=== PATIENT | female | born 1965 | race American Indian/Alaskan Native ===

== ENCOUNTER 2016-12-16 22:29 | Emergency (ER) | payer BC ==
[2016-12-16] MEDS ORDERED: CATAPRES ONE ×2 (23:36)
[2016-12-16] MEDS ORDERED: CATAPRES PO ONE (23:41)
[2016-12-17 00:08] LABS: Basophils % (Auto) 1.1 % (0.0-1.8); Eosinophils % (Auto) 3.1 % (0.0-4.3); Hematocrit 34.5 % (30.3-42.9); Mean Corpuscular HGB Conc 32 % (30-34); Mean Corpuscular Volume 75 fl (79-97); Platelet Count 299 K/mm3 (140-440); Red Blood Count 4.62 M/mm3 (3.65-5.03); Red Cell Distribution Width 19.2 % (13.2-15.2); White Blood Count 10.5 K/mm3 (4.5-11.0)
[2016-12-17 00:09] LABS: Mean Corpuscular Hemoglobin 24 pg (28-32)
[2016-12-17 00:26] LABS: Chloride 102.1 mmol/L (98-107); Potassium 3.4 mmol/L (3.6-5.0); Sodium 139 mmol/L (137-145)
[2016-12-17 01:21] LABS: Anion Gap 17 mmol/L; BUN/Creatinine Ratio 18.33; Blood Urea Nitrogen 11 mg/dL (7-17); Carbon Dioxide 23 mmol/L (22-30); Glucose 104 mg/dL (65-100)
[2016-12-17 01:22] LABS: Alanine Aminotransferase 9 units/L (7-56); Alkaline Phosphatase 48 units/L (35-129); Lipase 103 units/L (13-60); Total Protein 7.9 g/dL (6.3-8.2)
[2016-12-17 01:26] LABS: Bacteria,Urine 1+ /HPF (Negative); Bilirubin,Urine NEG (Negative); Blood,Urine MOD (Negative); Ketones,Urine NEG (Negative); Leukocyte Esterase,Urine NEG (Negative); Mucus,Urine FEW /HPF; Nitrite,Urine NEG (Negative); Protein,Urine <15 mg/dL mg/dL (Negative); Urobilinogen,Urine < 2.0 mg/dL (<2.0)
--- NOTE | 2016-12-17 01:29 | Emergency Department Report ---
HPI - General Chief Complaint: Abdominal Pain Time Seen by Provider: 12/17/16 00:07 - HPI HPI: This is a 51 year-old female presents to the emergency department from home, driving himself in to be seen, with complaint of generalized abdominal pain that is worse in the upper abdomen. She says it feels like a gas pain but she does that it is not gas and she cannot get it to go away. This been going on intermittently over the past 2 weeks. She has some nausea but there has been no vomiting. She denies any fever, back pain, dysuria, vaginal bleeding or discharge. She has a history of previous pancreatitis, hypertension and GERD. She has a primary care physician, Dr. Giovanny Mir, but she has been noncompliant with her blood pressure medication. She tried some [place] for her symptoms without any relief. No recent travel or sick contacts at home. She denies any history of heavy alcohol use or gallbladder stones. ED Past Medical Hx - Past Medical History Previous Medical History?: Yes Hx Hypertension: Yes Hx Congestive Heart Failure: No Hx Diabetes: No Hx GERD: Yes Hx Renal Disease: Yes Hx Seizures: Yes Hx Asthma: No Hx COPD: No Additional medical history: PANCREATITIS - Surgical History Additional Surgical History: X 4. TUBAL LIGATION - Social History Smoking Status: Current Every Day Smoker - Medications Home Medications: Home Medications Medication Instructions Recorded Confirmed Last Taken Type Olmesartan/Hydrochlorothiazide 1 tab PO QDAY 05/05/16 05/05/16 05/04/16 09:00 History [Benicar HCT 40-25 mg] Famotidine [Pepcid] 20 mg PO BID #60 tablet 05/07/16 Unknown Rx HYDROcodone/APAP 5-325 [[place] 1 each PO Q6HR PRN #10 tablet 12/17/16 Unknown Rx 5-325 mg TAB] ED Review of Systems ROS: Stated complaint: ABD P Other details as noted in HPI Comment: All other systems reviewed and negative Constitutional: denies: chills, fever Eyes: denies: eye pain, eye discharge, vision change ENT: denies: ear pain, throat pain Respiratory: denies: cough, shortness of breath, wheezing Cardiovascular: denies: chest pain, palpitations Gastrointestinal: abdominal pain, nausea. denies: vomiting Genitourinary: denies: urgency, dysuria, discharge Musculoskeletal: denies: back pain, joint swelling, arthralgia Skin: denies: rash, lesions Neurological: denies: headache, weakness, paresthesias Physical Exam - Physical Exam Vital Signs: Vital Signs 12/16/16 12/17/16 23:19 00:05 Temperature 98.2 F Pulse Rate 90 76 Respiratory 20 Rate Blood Pressure 189/121 189/121 O2 Sat by Pulse 100 Oximetry Physical Exam: GENERAL: The patient is well-developed well-nourished. HEENT: Normocephalic. Atraumatic. Extraocular motions are intact. Patient has moist mucous membranes. Pupils equal reactive to light bilaterally. No nystagmus. NECK: Supple. Trachea is midline. CHEST/LUNGS: Clear to auscultation. There is no respiratory distress noted. HEART/CARDIOVASCULAR: Regular. There is no tachycardia. There is no gallop rub or murmur. ABDOMEN: Abdomen is soft. Generalized tenderness to palpation of the abdomen. No guarding or rebound tenderness. Patient has normal bowel sounds. There is no abdominal distention. SKIN: Skin is warm and dry. NEURO: The patient is awake, alert, and oriented. The patient is cooperative. The patient has no focal neurologic deficits. The patient has normal speech. MUSCULOSKELETAL: There is no tenderness or deformity. There is no limitation range of motion. There is no evidence of acute injury. ED Course Vital Signs 12/16/16 12/17/16 23:19 00:05 Temperature 98.2 F Pulse Rate 90 76 Respiratory 20 Rate Blood Pressure 189/121 189/121 O2 Sat by Pulse 100 Oximetry ED Medical Decision Making - Lab Data Result diagrams: 12/16/16 23:38 12/16/16 23:38 - Radiology Data Radiology results: report reviewed Abdominal ultrasound is a normal examination. CT of the abdomen and pelvis with IV contrast shows no evidence of intestinal or urinary tract obstruction. No Ileus or enteritis. Slight dominant cyst of the right ovary measuring 15 mm. Minimal fluid in the lower pelvis. - Medical Decision Making 51-year-old female presents to the emergency department with complaint of a 2 week history of abdominal discomfort. The patient has a history of pancreatitis and her lipase is elevated at about 100 today. Abdominal ultrasound does not show any acute process. Patient continued to have some abdominal discomfort so a CT of the abdomen and pelvis was done that showed no evidence of intestinal urinary tract obstruction. No ileus or enteritis. There is a slight right-sided dominant cyst. She will be given a referral for gastroenterology and some pain medication for home and encouraged follow-up with her primary care physician. She will return to the ER for any worsening of her symptoms or any acute distress. - Differential Diagnosis pancreatitis, cholecystitis, gastritis, colitis Critical Care Time: No Critical care attestation.: If time is entered above; I have spent that time in minutes in the direct care of this critically ill patient, excluding procedure time. ED Disposition Clinical Impression: Abdominal pain Qualifiers: Abdominal location: generalized Qualified Code(s): R10.84 - Generalized abdominal pain HTN (hypertension) Qualifiers: Hypertension type: essential hypertension Qualified Code(s): I10 - Essential ( primary) hypertension Disposition: TO HOME OR SELFCARE Is pt being admited?: No Condition: Stable Instructions: Abdominal Pain (ED), Hypertension (ED) Additional Instructions: please follow-up with your primary care doctor in the next few days. I given your referral for a pipe organ mechanic, Dr. Howard, to follow up regarding your chronic abdominal pains. Return to the emergency department with any worsening of your symptoms or any acute distress. You've been prescribed a medication that is sedating. Therefore this medication cannot be mixed with alcohol, or taken prior to driving, working, or being responsible for children. Prescriptions: HYDROcodone/APAP 5-325 [[place] 5-325 mg TAB] 1 each PO Q6HR PRN #10 tablet PRN Reason: Pain Referrals: PRIMARY MD ATIYA [Primary Care Provider] - 3-5 Days GIOVANNY MIR MD [Staff Physician] - 3-5 Days JOHANA HOWARD MD [Staff Physician] - 3-5 Days Time of Disposition: 06:04
--- NOTE | 2016-12-17 03:27 | Ultrasound Report ---
FINAL REPORT PROCEDURE: US ABDOMEN COMPLETE TECHNIQUE: Real-time sonography in multiple planes of the abdomen was performed with image documentation. CPT 41359 HISTORY: Abd pain COMPARISON: 05/05/2016 FINDINGS: Liver: Normal size and echotexture with no evidence of cystic or solid mass lesions. Gallbladder: Fluid filled. No gallstones, wall thickening, pericholecystic fluid, or sonographic Garces's sign. Intrahepatic bile ducts: Normal caliber . Extrahepatic bile ducts: Normal caliber. Pancreas: Normal as visualized with suboptimal depiction of the pancreatic tail. Aorta: Visualized portions appear normal. IVC: Visualized portions appear normal. RIGHT kidney: Normal echotexture. No focal renal mass, calculus, or hydronephrosis. Length: 9.4cm. LEFT kidney: Normal echotexture. No focal renal mass, calculus, or hydronephrosis . Length: 10.4cm. Spleen: Normal size and echotexture. No focal lesions. Intraperitoneal fluid: None . Other: None . IMPRESSION: Normal Examination.
[2016-12-17] MEDS ORDERED: MORPHINE IV ONE ×2 (03:36→03:37)
[2016-12-17] MEDS ORDERED: NACL ONE (05:01)
--- NOTE | 2016-12-17 05:56 | Cat Scan Report ---
FINAL REPORT PROCEDURE: CT ABDOMEN PELVIS W CON TECHNIQUE: Computerized axial tomography of the abdomen and pelvis was performed after the IV injection of iodinated nonionic contrast. HISTORY: Abd pain COMPARISON: 05/05/2016 FINDINGS: Visualized lower thorax: No significant abnormality. Liver: Normal size and attenuation. Spleen: Normal size and attenuation. Gallbladder and biliary system: Normal. Pancreas: Normal. Adrenals: Normal. Kidneys: Normal. GI tract: The stomach is normal. The small bowel has a normal caliber. No obstruction, ileus or enteritis. Moderate fecal debris throughout the colon.. Lymph nodes and mesentery: There are few scattered small lymph nodes in the mesentery.. Vasculature: Minimal atherosclerosis of the aorta. Bladder: Normal. Reproductive organs: The uterus is normal. There are few cysts on the right ovary these measure up to 15 millimeter. Small follicular cyst left ovary. Minimal fluid in the lower pelvis.. Peritoneum: Minimal fluid lower pelvis.. Musculoskeletal structures: No significant abnormality. Other: None. IMPRESSION: There is no evidence of intestinal or urinary tract obstruction. No ileus or enteritis. Slight dominant cyst right ovary measures 15 millimeters. Minimal fluid in the lower pelvis.
[2016-12-17 06:18] VITALS: BP 133/79
== END 2016-12-17 06:18 | disposition home or self-care (01) ==
LOC: ED 22:29
DX: R10.84 Generalized abdominal pain (principal); I10 Essential (primary) hypertension; K21.9 Gastro-esophageal reflux disease without esophagitis; F17.200 Nicotine dependence, unspecified, uncomplicated
CPT/HCPCS: 36415; 74177; 76700; 80053; 81001; 83690; 85025; 96374; 99284; J2270; Q9967

== ENCOUNTER 2016-12-21 01:18 | Emergency (ER) | payer BC ==
[2016-12-21 01:55] LABS: Basophils % (Auto) 0.8 % (0.0-1.8); Eosinophils % (Auto) 3.7 % (0.0-4.3); Hematocrit 38.4 % (30.3-42.9); Hemoglobin 12.3 gm/dl (10.1-14.3); Mean Corpuscular HGB Conc 32 % (30-34); Mean Corpuscular Volume 75 fl (79-97); Platelet Count 331 K/mm3 (140-440); Red Cell Distribution Width 18.8 % (13.2-15.2); White Blood Count 8.1 K/mm3 (4.5-11.0)
[2016-12-21 02:01] LABS: Mean Corpuscular Hemoglobin 24 pg (28-32)
[2016-12-21 02:08] LABS: INR 0.94 (0.87-1.13)
[2016-12-21 02:09] LABS: Partial Thromboplastin Time 28.7 Sec. (24.2-36.6)
[2016-12-21 02:14] LABS: Anion Gap 20 mmol/L; Blood Urea Nitrogen 16 mg/dL (7-17); Calcium 9.4 mg/dL (8.4-10.2); Carbon Dioxide 22 mmol/L (22-30); Glucose 208 mg/dL (65-100); Potassium 3.6 mmol/L (3.6-5.0); Sodium 136 mmol/L (137-145)
[2016-12-21] MEDS ORDERED: ZOFRAN IM ONE (06:17)
[2016-12-21] MEDS ORDERED: MORPHINE IM ONE (06:17)
--- NOTE | 2016-12-21 06:22 | Emergency Department Report ---
ED Chest Pain HPI - General Chief Complaint: Chest Pain Stated Complaint: CP Time Seen by Provider: 12/21/16 06:08 Source: patient Mode of arrival: Ambulatory Limitations: No Limitations - History of Present Illness MD Complaint: chest pain -: days(s) Pain Location: right chest Pain Radiation: back Severity: moderate Severity scale (0 -10): 8 Quality: sharp Consistency: constant Improves With: nothing Worsens With: nothing re: denies: nausea, vomting Other Symptoms: cough. denies: palpitations - Related Data Home Medications Medication Instructions Recorded Confirmed Last Taken Olmesartan/Hydrochlorothiazide 1 tab PO QDAY 05/05/16 12/21/16 12/20/16 21:00 [Benicar HCT 40-25 mg] Previous Rx's Medication Instructions Recorded Last Taken Type Famotidine [Pepcid] 20 mg PO BID #60 tablet 05/07/16 12/20/16 21:00 Rx HYDROcodone/APAP 5-325 [[place] 1 each PO Q6HR PRN #10 tablet 12/17/16 12/20/16 21 :00 Rx 5-325 mg TAB] HYDROcodone/APAP 5-325 [[place] 1 each PO Q6HR PRN #14 tablet 12/21/16 Unknown Rx 5/325] Ondansetron [Zofran Odt] 4 mg PO Q8HR PRN #14 tab.rapdis 12/21/16 Unknown Rx Allergies Allergy/AdvReac Type Severity Reaction Status Date / Time No Known Allergies Allergy Verified 12/21/16 05:37 Heart Score - HEART Score History: Moderately suspicious EKG: Non-specific Age: 45-65 Risk factors: 1-2 risk factors Troponin: < normal limit HEART Score: 4 - Critical Actions Critical Actions: 4-6 pts:12-16.6% risk of adverse cardiac event. Should be admitted ED Review of Systems ROS: Stated complaint: CP Other details as noted in HPI Comment: All other systems reviewed and negative Constitutional: denies: diaphoresis, fever Respiratory: cough, shortness of breath. denies: wheezing Cardiovascular: chest pain. denies: palpitations, dyspnea on exertion Gastrointestinal: abdominal pain. denies: nausea, vomiting Musculoskeletal: as per HPI ED Past Medical Hx - Past Medical History Previous Medical History?: Yes Hx Hypertension: Yes Hx Congestive Heart Failure: No Hx Diabetes: No Hx GERD: Yes Hx Renal Disease: Yes Hx Seizures: Yes Hx Asthma: No Hx COPD: No Additional medical history: PANCREATITIS - Surgical History Past Surgical History?: Yes Additional Surgical History: X 4. TUBAL LIGATION - Social History Smoking Status: Current Every Day Smoker Substance Use Type: None - Medications Home Medications: Home Medications Medication Instructions Recorded Confirmed Last Taken Type Olmesartan/Hydrochlorothiazide 1 tab PO QDAY 05/05/16 12/21/16 12/20/16 21:00 History [Benicar HCT 40-25 mg] Famotidine [Pepcid] 20 mg PO BID #60 tablet 05/07/16 12/21/16 12/20/16 21:00 Rx HYDROcodone/APAP 5-325 [[place] 1 each PO Q6HR PRN #10 tablet 12/17/16 12/21/16 21:00 Rx 5-325 mg TAB] HYDROcodone/APAP 5-325 [[place] 1 each PO Q6HR PRN #14 tablet 12/21/16 Unknown Rx 5/325] Ondansetron [Zofran Odt] 4 mg PO Q8HR PRN #14 tab.rapdis 12/21/16 Unknown Rx ED Physical Exam - General Limitations: No Limitations General appearance: alert, in no apparent distress - Head Head exam: Present: atraumatic - Eye Eye exam: Present: normal appearance - Respiratory Respiratory exam: Present: normal lung sounds bilaterally - Cardiovascular Cardiovascular Exam: Present: regular rate, normal rhythm, normal heart sounds - GI/Abdominal GI/Abdominal exam: Present: soft, tenderness (RUQ) - Back Exam Back exam: Present: normal inspection - Neurological Exam Neurological exam: Present: alert, oriented X3, CN II-XII intact ED Course Vital Signs 12/21/16 12/21/16 12/21/16 01:26 05:13 05:21 Temperature 98.0 F Pulse Rate 86 70 Respiratory 18 21 Rate Blood Pressure 134/93 139/88 Blood Pressure [Right] O2 Sat by Pulse 100 100 Oximetry 12/21/16 12/21/16 12/21/16 05:30 05:41 05:45 Temperature Pulse Rate 69 75 72 Respiratory 26 H 24 19 Rate Blood Pressure 147/88 147/88 Blood Pressure 147/88 [Right] O2 Sat by Pulse 100 99 100 Oximetry 12/21/16 12/21/1612/21/17 05:51 06:00 06:11 Temperature Pulse Rate 71 75 71 Respiratory 34 H 18 32 H Rate Blood Pressure 137/86 151/110 151/110 Blood Pressure [Right] O2 Sat by Pulse 100 92 100 Oximetry 12/21/16 12/21/16 12/21/16 06:21 06:31 06:40 Temperature Pulse Rate 67 80 67 Respiratory 41 H 23 15 Rate Blood Pressure 133/72 160/91 160/91 Blood Pressure [Right] O2 Sat by Pulse 100 100 100 Oximetry 12/21/16 12/21/16 12/21/16 06:51 07:00 07:11 Temperature Pulse Rate 72 77 71 Respiratory 24 13 22 Rate Blood Pressure 138/85 130/72 130/72 Blood Pressure 160/71 [Right] O2 Sat by Pulse 100 100 100 Oximetry 12/21/16 12/21/16 12/21/16 07:21 07:30 07:31 Temperature Pulse Rate 70 65 Respiratory 11 L 16 16 Rate Blood Pressure 147/74 128/82 Blood Pressure [Right] O2 Sat by Pulse 100 96 Oximetry 12/21/16 12/21/16 12/21/16 07:41 07:51 08:01 Temperature Pulse Rate 68 60 64 Respiratory 9 L 18 16 Rate Blood Pressure 128/82 128/82 107/53 Blood Pressure [Right] O2 Sat by Pulse 95 100 98 Oximetry 12/21/16 12/21/16 12/21/16 08:11 08:21 08:30 Temperature Pulse Rate 68 70 68 Respiratory 17 15 16 Rate Blood Pressure 107/53 119/79 122/69 Blood Pressure [Right] O2 Sat by Pulse 99 100 100 Oximetry 12/21/16 12/21/16 12/21/16 08:41 08:51 09:00 Temperature Pulse Rate 66 67 63 Respiratory 16 19 9 L Rate Blood Pressure 122/69 123/70 108/66 Blood Pressure [Right] O2 Sat by Pulse 96 99 100 Oximetry 12/21/16 12/21/16 12/21/16 09:11 09:37 09:41 Temperature Pulse Rate 68 62 Respiratory 15 21 Rate Blood Pressure 108/66 108/66 108/66 Blood Pressure [Right] O2 Sat by Pulse 100 100 100 Oximetry 12/21/16 09:51 Temperature Pulse Rate 65 Respiratory 19 Rate Blood Pressure 108/66 Blood Pressure [Right] O2 Sat by Pulse 100 Oximetry - Reevaluation(s) Reevaluation #1: 12/21/16 10:29 PATIENT STATED THAT SHE FEEL MUCH BETTER. NO CHEST PAIN. ED Medical Decision Making - Lab Data Result diagrams: 12/21/16 01:35 12/21/16 01:35 Critical care attestation.: If time is entered above; I have spent that time in minutes in the direct care of this critically ill patient, excluding procedure time. ED Disposition Clinical Impression: Acute abdominal pain in right upper quadrant, Chest pain in adult Disposition: DC-01 TO HOME OR SELFCARE Is pt being admited?: No Does the pt Need Aspirin: No Condition: Stable Instructions: Chest Pain (ED) Prescriptions: HYDROcodone/APAP 5-325 [[place] 5/325] 1 each PO Q6HR PRN #14 tablet PRN Reason: Pain Ondansetron [Zofran Odt] 4 mg PO Q8HR PRN #14 tab.rapdis PRN Reason: Vomiting Referrals: GIOVANNY MIR MD [Primary Care Provider] - 3-5 Days
[2016-12-21] MEDS ORDERED: NACL ONE (08:35)
--- NOTE | 2016-12-21 09:22 | XRay Report ---
AP CHEST :12/21/16 06:24:00 CLINICAL: Fever and cough. COMPARISON:07/08/08 FINDINGS: Normal heart and pulmonary vasculature. Aortic tortuosity. The lungs are normally expanded and clear. The bones and soft tissues are normal. IMPRESSION: No acute cardiopulmonary process.No pneumonia.
--- NOTE | 2016-12-21 09:48 | Cat Scan Report ---
CT CHEST WITH CONTRAST: 12/21/16 09:41 CLINICAL: Chest pain TECHNIQUE: PE protocol with volumetric acquisition and 1.25 mm scan reconstructions after the uneventful intravenous injection of 100 cc Omnipaque 350. Consent was obtained prior to the administration of contrast. FINDINGS: Good opacification of the pulmonary arteries and no pulmonary artery thrombus identified. Normal heart and aorta. Normal lungs and mediastinum. Normal thyroid, trachea and esophagus. The upper abdomen is unremarkable. Degenerative change in the spine. IMPRESSION: Negative study. No pulmonary embolus.
[2016-12-21 10:05] VITALS: BP 108/66
== END 2016-12-21 11:15 | disposition home or self-care (01) ==
LOC: ED 01:18 → EEVIPCON 01:18 → ED 11:15
DX: R10.11 Right upper quadrant pain (principal); R07.9 Chest pain, unspecified; I10 Essential (primary) hypertension; K21.9 Gastro-esophageal reflux disease without esophagitis; F17.200 Nicotine dependence, unspecified, uncomplicated
CPT/HCPCS: 36415; 71010; 71275; 80048; 83690; 84484; 85025; 85379; 85610; 85730; 93005; 93010; 96372; 99285; J2270; J2405; Q9967

== ENCOUNTER 2019-10-23 16:31 | Emergency (ER) | payer BC ==
[2019-10-23] MEDS ORDERED: ALUM-MAG HYDROXIDE-SIMETHICONE 200-200-20MG/5ML ORAL LIQD 30 ML PO ONE (17:00)
[2019-10-23] MEDS ORDERED: LIDOCAINE VISCOUS 2% 15 ML ORAL LIQD PO ONE (17:00)
--- NOTE | 2019-10-23 17:07 | Emergency Department Report ---
ED Abdominal Pain HPI - General Chief Complaint: Abdominal Pain Stated Complaint: RT SIDE DISCOMFORT/PAIN Time Seen by Provider: 10/23/19 16:59 Source: patient Mode of arrival: Ambulatory Limitations: No Limitations - History of Present Illness Initial Comments: 53-year-old female with history of H. pylori, GERD, pancreatitis, HTN, presents to the ED with epigastric abdominal pain. Patient states pain began 2 days ago. Pain feels like "gas."It is located and epigastric area and radiates around the right upper quadrant to the back. Patient reports nausea, denies vomiting or diarrhea. Patient denies fever. Patient states she took some milk of magnesia, which did not is her symptoms. Patient reports she has been seen and scoped by GI in the past, not currently on any medications for acid reflux. MD Complaint: abdominal pain -: days(s) (2) Location: epigastric Radiation: RUQ, back Migration to: no migration Severity: moderate Quality: other ("like gas") Consistency: constant Improves With: nothing Worsens With: nothing Associated Symptoms: nausea. denies: vomiting, diarrhea, fever - Related Data Home Medications Medication Instructions Recorded Confirmed Last Taken Olmesartan/Hydrochlorothiazide 1 tab PO QDAY 05/05/16 12/21/16 12/20/16 21:00 [Benicar HCT 40-25 mg] Previous Rx's Medication Instructions Recorded Last Taken Type Famotidine [Pepcid] 20 mg PO BID #60 tablet 05/07/16 12/20/16 21:00 Rx HYDROcodone/APAP 5-325 [[place] 1 each PO Q6HR PRN #10 tablet 12/17/16 12/20/16 21:00 Rx 5-325 mg TAB] HYDROcodone/APAP 5-325 [[place] 1 each PO Q6HR PRN #14 tablet 12/21/16 Unknown Rx 5/325] Ondansetron [Zofran Odt] 4 mg PO Q8HR PRN #14 tab.rapdis 12/21/16 Unknown Rx Ibuprofen [Motrin] 600 mg PO Q8H PRN #20 tablet 07/13/18 Unknown Rx methOCARBAMOL [Robaxin TAB] 500 mg PO Q6H PRN #15 tablet 07/13/18 Unknown Rx traMADoL [Ultram] 50 mg PO Q6HR PRN #10 tablet 07/13/18 Unknown Rx Esomeprazole Magnesium [NexIUM] 40 mg PO QDAY #30 capsule. 10/23/19 Unknown Rx Allergies Allergy/AdvReac Type Severity Reaction Status Date / Time No Known Allergies Allergy Verified 12/21/16 05:37 ED Review of Systems ROS: Stated complaint: RT SIDE DISCOMFORT/PAIN Other details as noted in HPI Comment: All other systems reviewed and negative Constitutional: denies: chills, fever Respiratory: denies: shortness of breath Gastrointestinal: abdominal pain, nausea. denies: vomiting, diarrhea ED Past Medical Hx - Past Medical History Previous Medical History?: Yes Hx Hypertension: Yes Hx Congestive Heart Failure: No Hx Diabetes: No Hx GERD: Yes Hx Renal Disease: Yes Hx Seizures: Yes Hx Asthma: No Hx COPD: No Additional medical history: PANCREATITIS - Surgical History Past Surgical History?: Yes Additional Surgical History: X 4. TUBAL LIGATION - Social History Smoking Status: Never Smoker Substance Use Type: Alcohol - Medications Home Medications: Home Medications Medication Instructions Recorded Confirmed Last Taken Type Olmesartan/Hydrochlorothiazide 1 tab PO QDAY 05/05/16 12/21/16 12/20/16 21:00 History [Benicar HCT 40-25 mg] Famotidine [Pepcid] 20 mg PO BID #60 tablet 05/07/16 12/21/16 12/20/16 21:00 Rx HYDROcodone/APAP 5-325 [[place] 1 each PO Q6HR PRN #10 tablet 12/17/16 12/21/16 12/20/16 21:00 Rx 5-325 mg TAB] HYDROcodone/APAP 5-325 [[place] 1 each PO Q6HR PRN #14 tablet 12/21/16 Unknown Rx 5/325] Ondansetron [Zofran Odt] 4 mg PO Q8HR PRN #14 tab.rapdis 12/21/16 Unknown Rx Ibuprofen [Motrin] 600 mg PO Q8H PRN #20 tablet 07/13/18 Unknown Rx methOCARBAMOL [Robaxin TAB] 500 mg PO Q6H PRN #15 tablet 07/13/18 Unknown Rx traMADoL [Ultram] 50 mg PO Q6HR PRN #10 tablet 07/13/18 Unknown Rx Esomeprazole Magnesium [NexIUM] 40 mg PO QDAY #30 capsule. 10/23/19 Unknown Rx ED Physical Exam - General Limitations: No Limitations General appearance: alert, in no apparent distress - Head Head exam: Present: atraumatic, normocephalic - Eye Eye exam: Present: normal appearance, EOMI - ENT ENT exam: Present: mucous membranes moist - Neck Neck exam: Present: normal inspection - Respiratory Respiratory exam: Present: normal lung sounds bilaterally. Absent: respiratory distress - Cardiovascular Cardiovascular Exam: Present: regular rate, normal rhythm - GI/Abdominal GI/Abdominal exam: Present: soft, tenderness (moderate epigastric, mild RUQ). Absent: distended - Extremities Exam Extremities exam: Present: normal inspection - Neurological Exam Neurological exam: Present: alert, oriented X3 - Psychiatric Psychiatric exam: Present: normal affect, normal mood - Skin Skin exam: Present: warm, dry, intact, normal color ED Course Vital Signs 10/23/19 10/23/19 10/23/19 16:34 16:35 17:35 Temperature 98.3 F 98.3 F Pulse Rate 98 H Respiratory 20 20 Rate Blood Pressure 139/95 139/95 164/108 Blood Pressure [Left] O2 Sat by Pulse 96 Oximetry 10/23/19 10/23/19 10/23/19 18:00 18:30 19:55 Temperature 97.6 F Pulse Rate 74 93 H 78 Respiratory 17 11 L 18 Rate Blood Pressure 180/100 163/101 Blood Pressure 187/100 [Left] O2 Sat by Pulse 100 Oximetry ED Medical Decision Making - Lab Data Result diagrams: 10/23/19 16:41 10/23/19 16:41 - EKG Data -: EKG Interpreted by [facility] EKG shows normal: sinus rhythm, axis, intervals, QRS complexes, ST-T waves Rate: normal - EKG Data Interpretation: [facility] - Radiology Data Radiology results: report reviewed, image reviewed - Medical Decision Making 53 yo F w/ epigastric pain likely secondary to GERD. Pt admits she has not been following appropriate diet. EKG shows no ST changes, troponin normal. Abdominal series and ultrasound both unremarkable. Remainder of labs normal. Pain relief w/ GI cocktail here in ED. Rx given for nexium. Pt given info on diet, advised to follow up w/ GI. - Differential Diagnosis GERD, ACS, perforated ulcer, gallstones, pancreatitis Critical care attestation.: If time is entered above; I have spent that time in minutes in the direct care of this critically ill patient, excluding procedure time. ED Disposition Clinical Impression: Abdominal pain Disposition: DC- TO HOME OR SELFCARE Is pt being admited?: No Condition: Stable Instructions: Diet for Ulcers and Gastritis (ED), Gastroesophageal Reflux Disease (ED), Abdominal Pain (ED) Prescriptions: Esomeprazole Magnesium [NexIUM] 40 mg PO QDAY #30 capsule.dr Referrals: LEXI PERSON MD [Staff Physician] - 3-5 Days PRIMARY CARE, [Referring] - 3-5 Days Time of Disposition: 19:30
[2019-10-23 17:12] LABS: Alanine Aminotransferase 9 units/L (7-56); Albumin 4.3 g/dL (3.9-5); BUN/Creatinine Ratio 17; Blood Urea Nitrogen 12 mg/dL (7-17); Calcium 9.6 mg/dL (8.4-10.2); Hemolysis Index 5
[2019-10-23 17:18] LABS: Hematocrit 39.7 % (30.3-42.9); Hemoglobin 12.8 gm/dl (10.1-14.3); Mean Corpuscular HGB Conc 32 % (30-34); Mean Corpuscular Volume 79 fl (79-97); Platelet Count 286 K/mm3 (140-440); Red Blood Count 5.05 M/mm3 (3.65-5.03); Red Cell Distribution Width 14.9 % (13.2-15.2)
[2019-10-23 17:28] LABS: Bilirubin,Urine NEG (Negative); Blood,Urine SM (Negative); Color,Urine Yellow (Yellow); Mucus,Urine 3+ /HPF; Protein,Urine <15 mg/dL mg/dL (Negative); Urobilinogen,Urine < 2.0 mg/dL (<2.0)
[2019-10-23 17:36] LABS: INR 1.03 (0.87-1.13)
[2019-10-23 17:37] LABS: Partial Thromboplastin Time 29.7 Sec. (24.2-36.6)
--- NOTE | 2019-10-23 17:39 | XRay Report ---
ABDOMEN 3 VIEW(S) INDICATION / CLINICAL INFORMATION: Abdomen pain. COMPARISON: None available. FINDINGS: TUBES / LINES: None. BOWEL GAS PATTERN: No significant abnormality. FREE AIR / EXTRALUMINAL GAS: None seen. LUNGS: Visualized lungs show no significant abnormality. IMPRESSION: 1. No significant abnormality. Signer Name: Jere Dinh MD Signed: 10/23/2019 5:35 PM Workstation Name: [id number]
[2019-10-23 18:20] LABS: Eosinophils % (Manual) 0 % (0.0-4.3); Macrocytosis 1+; Total Cells Counted 100
[2019-10-23 18:22] LABS: Large Platelets Few; Platelet Estimate Consistent w Auto
--- NOTE | 2019-10-23 19:28 | Ultrasound Report ---
US abdomen limited INDICATION / CLINICAL INFORMATION: epigastric/ RUQ pain. COMPARISON: 12/17/2016 FINDINGS: The gallbladder is normal without evidence of cholelithiasis. Common bile duct is normal measuring 2 mm. Visualized portions of the liver, right kidney, pancreas and aorta are normal. IMPRESSION: Negative limited abdominal ultrasound Signer Name: Cristo Cassidy MD FACR Signed: 10/23/2019 7:24 PM Workstation Name: [id number]
[2019-10-23 20:16] VITALS: BP 187/100
== END 2019-10-23 19:55 | disposition home or self-care (01) ==
LOC: ED 16:31
DX: R10.13 Epigastric pain (principal); I10 Essential (primary) hypertension; K21.9 Gastro-esophageal reflux disease without esophagitis; Z86.69 Personal history of other diseases of the nervous system and sense organs; Z98.51 Tubal ligation status; Z79.899 Other long term (current) drug therapy; Z98.890 Other specified postprocedural states
CPT/HCPCS: 36415; 74022; 76705; 80053; 81001; 83690; 84484; 85007; 85025; 85610; 85730; 93005